=== PATIENT | female | born 1930 | race Caucasian/White ===

== ENCOUNTER 2016-10-28 18:06 | Emergency (ER) | payer OTHER ==
[~2016-10-28] VITALS: Ht 175.3 cm; Wt 104.3 kg
--- NOTE | 2016-10-28 18:56 | ED UPPER/LOWER EXTREMITY COMPL ---
History of Present Illness General Chief Complaint: Lower Extremity Problems Stated Complaint: RT KNEE PAIN Source: patient, family, old records Exam Limitations: no limitations Vital Signs & Intake/Output Vital Signs & Intake/Output Vital Signs Date Time Temp Pulse Resp B/P Pulse O2 O2 Flow FiO2 Ox Delivery Rate 10/28 1818 97.5 71 18 100/65 96 Room Air Allergies Coded Allergies: cephalexin (RASH 10/28/16) clindamycin (RASH 10/28/16) latex (RED HANDS 10/28/16) Reconcile Medications Acetaminophen/Diphenhydramine (Tylenol Pm Ex-Strength Caplet) 500 MG-25 MG TABLET 1 TAB PO QPM SLEEP (Reported) Amiodarone HCl 200 MG TABLET 0.5 TAB PO DAILY HEART (Reported) Apixaban (Eliquis) 2.5 MG TABLET 1 TAB PO BID BLOOD THINNER (Reported) Atorvastatin Calcium 80 MG TABLET 1 TAB PO DAILY CHOLESTEROL (Reported) Biotin (Unknown Strength) CAPSULE (Unknown Dose) PO DAILY SUPPLEMENT ( Reported) Calcitriol 0.25 MCG CAPSULE 1 CAP PO EOD SUPPLEMENT (Reported) Citalopram Hydrobromide (Citalopram HBr) 20 MG TABLET 1 TAB PO DAILY MENTAL HEALTH (Reported) Cyanocobalamin (Vitamin B-12) 1,000 MCG TABLET 1 TAB PO DAILY SUPPLEMENT ( Reported) Dulaglutide (Trulicity) 1.5 MG/0.5 ML PEN.INJCTR 1.5 MG SC QSAT DM (Reported) Ezetimibe (Zetia) 10 MG TABLET 1 TAB PO DAILY CHOLESTEROL (Reported) Hydrochlorothiazide 12.5 MG CAPSULE 1 CAP PO DAILY BP (Reported) Levothyroxine Sodium (Synthroid) 175 MCG TABLET 1 TAB PO DAILY THYROID ( Reported) Levothyroxine Sodium (Synthroid) 175 MCG TABLET 0.5 TAB PO QSAT THYROID ( Reported) Losartan Potassium 25 MG TABLET 0.5 TAB PO DAILY HEART/BP (Reported) Metoprolol Succinate 25 MG TAB 1 TAB PO DAILY HEART/BP (Reported) [place]-3 Fatty Acids ([place]-3) 1,000 MG CAPSULE 1 CAP PO DAILY SUPPLEMENT ( Reported) Thiamine HCl (Vitamin B-1) (Unknown Strength) TABLET (Unknown Dose) PO DAILY SUPPLEMENT (Reported) Vit C/E/Zn/Coppr/Lutein/Zeaxan (Preservision Areds 2 Softgel) 250-200-40 CAPSULE 1 CAP PO BID SUPPLEMENT (Reported) Triage Note: PT STATES THAT SHE WOKE FROM A NAP WITH R KNEE PAIN, NO PAIN WHEN SITTING BUT STATES THAT SHE HAS PAIN WHEN SHE TRIES TO WALK. DENIES INJURY Triage Nurses Notes Reviewed? yes HPI: Patient states that last week she had a mechanical fall and landed on her right knee. Patient states her knee hurt for a day or so and then went away. This afternoon she laid down for a nap and when she woke up her right knee was painful. The pain increases when she attempts to straighten it. There is no radiation of pain. The pain is throbbing in nature. The pain is 7 out of 10. Patient has no other complaints. Past History Travel History Traveled to [place] past 21 day No Medical History Any Pertinent Medical History? see below for history Neurological: NONE EENT: NONE Cardiovascular: AFIB Respiratory: asthma Gastrointestinal: colitis Hepatic: NONE Renal: KIDNEYS AT 25% Musculoskeletal: NONE Psychiatric: NONE Endocrine: diabetes, hypothyroidism Blood Disorders: NONE Cancer(s): breast cancer CARPENTER/Reproductive: NONE Tetanus Vaccine: 07/13/15 Surgical History Surgical History: non-contributory Psychosocial History What is your primary language [place] Tobacco Use: Never used ETOH Use: denies use Illicit Drug Use: denies illicit drug use Family History Hx Contributory? No Review of Systems Review of Systems Constitutional: Reports: no symptoms. Respiratory: Reports: no symptoms. Cardiovascular: Reports: no symptoms. Gastrointestinal/Abdominal: Reports: no symptoms. Musculoskeletal: Reports: see HPI, joint pain. Neurological/Psychological: Reports: no symptoms. Immunological: Reports: no symptoms. Physical Exam Physical Exam General Appearance: well developed/nourished, alert, awake, anxious, mild distress Head: atraumatic, normal appearance Eyes: Bilateral: PERRL, EOMI. Neck: normal inspection, supple, no midline tenderness Cardiovascular/Respiratory: normal breath sounds, normal peripheral pulses, regular rate/rhythm, no respiratory distress Knee Right: normal range of motion, normal inspection, tenderness (WITH FLEXION) , NO RLE EDEMA Knee Ligaments Right: STABLE Lymphatic: no anterior cervical nic Progress Differential Diagnosis: contusion, dislocation, sprain, tendon injury Plan of Care: Orders Procedure Date/time Status Durable Medical Equipment 10/28 2000 Active Diagnostic Imaging: Viewed by Me: Radiology Read. Discussed w/RAD: Radiology Read. Radiology Impression: PATIENT: HAMILTON WEATHERS PRESENT AGE: 86 PATIENT ACCOUNT NO: [id number] : 31 LOCATION: [facility] ORDERING PHYSICIAN: ANETTE TOLLIVER MD SERVICE DATE: 10/28/16 EXAM TYPE: RAD - XRY-KNEE COMPLETE RIGHT EXAMINATION: XR KNEE, RIGHT CLINICAL INFORMATION: Right knee pain. Evaluate for fracture. COMPARISON: None. TECHNIQUE: Four views of the right knee. FINDINGS: There is no evidence of acute fracture or dislocation. There is suggestion of chondrocalcinosis. The medial and lateral knee joint spaces are well preserved. Probable mild narrowing of the patellofemoral joint space. Enthesopathic changes are noted at the patella. No significant suprapatellar joint effusion. Scattered vascular calcifications are noted. Normal osseous mineralization. Mild tricompartmental marginal osteophytosis. IMPRESSION: No evidence of acute fracture or dislocation. 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 Suspected chondrocalcinosis. DICTATED BY: SANTIAGO SCHWARTZ MD DATE/TIME DICTATED:10/28/161924 [facility]:ADE DATE/TIME TRANSCRIBED:10/28/161924 CONFIDENTIAL, DO NOT COPY WITHOUT APPROPRIATE AUTHORIZATION. <Electronically signed in Other Vendor System> SIGNED BY: SANTIAGO SCHWARTZ MD 10/28/161950 Departure Departure Disposition: HOME OR SELF CARE Condition: Stable Clinical Impression Primary Impression: Right knee sprain Referrals: ANA LOPEZ (PCP/Family) SOO RICK,DARLEEN Additional Instructions: WEAR KNEE IMMOBILIZER FOR COMFORT FOLLOW UP WITH DR. LEOS RETURN FOR ANY CONCERNS Departure Forms: Customer Survey General Discharge Information Procedures Splinting Location: RIGHT KNEE Manual Alignment Performed: No Pre-Made Type: knee imobilizer Splint: KNEE Splint Applied By: splint applied by il Pre-Proc Neuro Vasc Exam: normal Post-Proc Neuro Vasc Exam: normal
[2016-10-28] MEDS ORDERED: SYNTHROID175 MCG PO ×2 (19:32→19:33)
[2016-10-28] MEDS ORDERED: METOPROLOL SUCC25 M1 PO (19:33)
[2016-10-28] MEDS ORDERED: ZETIA10 M1 PO (19:34)
[2016-10-28] MEDS ORDERED: LOSARTAN POTASS25 M1 PO (19:34)
[2016-10-28] MEDS ORDERED: AMIODARONE HCL200 M1 PO (19:34)
[2016-10-28] MEDS ORDERED: ATORVASTATIN CA80 M1 PO (19:35)
[2016-10-28] MEDS ORDERED: ELIQUIS2.5 M1 PO (19:35)
[2016-10-28] MEDS ORDERED: HYDROCHLOROTH12.5 M3 PO (19:35)
[2016-10-28] MEDS ORDERED: TRULICITY1.5 MG/0.5 SC (19:35)
[2016-10-28] MEDS ORDERED: CALCITRIOL0.25 MC1 PO (19:35)
[2016-10-28] MEDS ORDERED: CITALOPRAM HBR20 MG PO (19:35)
[2016-10-28] MEDS ORDERED: PRESERVISION A1 EAC1 PO (19:36)
[2016-10-28] MEDS ORDERED: OMEGA-31000 M1 PO (19:36)
[2016-10-28] MEDS ORDERED: VITAMIN B-121000 MC3 PO (19:36)
[2016-10-28] MEDS ORDERED: VITAMIN B-1100 MG PO (19:37)
[2016-10-28] MEDS ORDERED: BIOTIN5 M1 PO (19:38)
[2016-10-28] MEDS ORDERED: TYLENOL PM EX-1 EACH PO (19:39)
--- NOTE | 2016-10-28 19:51 | RADIOLOGY REPORT ---
EXAMINATION: XR KNEE, RIGHT CLINICAL INFORMATION: Right knee pain. Evaluate for fracture. COMPARISON: None. TECHNIQUE: Four views of the right knee. FINDINGS: There is no evidence of acute fracture or dislocation. There is suggestion of chondrocalcinosis. The medial and lateral knee joint spaces are well preserved. Probable mild narrowing of the patellofemoral joint space. Enthesopathic changes are noted at the patella. No significant suprapatellar joint effusion. Scattered vascular calcifications are noted. Normal osseous mineralization. Mild tricompartmental marginal osteophytosis. IMPRESSION: No evidence of acute fracture or dislocation. 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 Suspected chondrocalcinosis.
[2016-10-28 20:20] VITALS: BP 122/70
== END 2016-10-28 20:21 ==
LOC: ERH 18:06
DX: S83.91XA Sprain of unspecified site of right knee, initial encounter (principal); W19.XXXA Unspecified fall, initial encounter; Y92.9 Unspecified place or not applicable; Y93.9 Activity, unspecified
CPT/HCPCS: 73562-RT